=== PATIENT | female | born 1985 | race Caucasian/White ===

== ENCOUNTER → 2017-11-12 | Outpatient (CLI) | payer OTHER ==
[~2017-11-12] VITALS: Ht 152.4 cm; Wt 65.8 kg
[~2017-11-12] MED LIST: GILTUSS TR TAB1 EACH PO; ZITHROMAX TRI-500 MG PO; ZYRTEC10 MG PO; [UNRECOGNIZED DRUG - OTHER] PO
== END | disposition home or self-care (01) ==
LOC: PPHC 14:35
DX: Z01.89 Encounter for other specified special examinations (principal); L01.09 Other impetigo

== ENCOUNTER → 2018-02-13 | Emergency (ER) | payer OTHER ==
[~2018-02-13] VITALS: Ht 167.6 cm; Wt 64.4 kg
== END | disposition left against medical advice (07) ==
LOC: ER 10:57
DX: Z53.20 Procedure and treatment not carried out because of patient's decision for unspecified reasons (principal)